=== PATIENT | female | born 1965 | race Caucasian/White ===

== ENCOUNTER 2018-01-14 12:33 | Day surgery (SDC) | payer OTHER ==
[~2018-01-14] VITALS: Ht 167.6 cm; Wt 73.0 kg
[2018-01-14] MEDS ORDERED: NAPR220 PO (13:13)
== END 2018-01-14 14:47 | disposition home or self-care (01) ==
LOC: ORSCSDS 12:33
PROVIDERS: Surgery
PROC: 0DJD8ZZ Inspection of Lower Intestinal Tract, Via Natural or Artificial Opening Endoscopic (ICD-10-PCS; principal; 2018-01-14 13:45)
DX: Z12.11 Encounter for screening for malignant neoplasm of colon (principal)
CPT/HCPCS: J7120